=== PATIENT | female | born 1975 | race Two or more races ===

== ENCOUNTER → 2017-02-12 | Day surgery (SDC) | payer MEDICAID ==
[~2017-02-12] VITALS: Ht 149.9 cm; Wt 93.0 kg
[~2017-02-12] MED LIST: *HYDROmorphone PF 1 MG VIAL PERIprocedural Use ONLY ONE; ACETAMINOPHEN/HYDROcodone 325 MG/5 MG TAB PO PRN; CHLORHEXIDINE GLUCONATE 2 % 1 PACK (2 CLOTHS) TOPICAL PRN; CIPROFLOXACIN 400 MG PREMIX 200 ML ONE; CIPROFLOXACIN/DEXT 400 MG/200 ML IV SCH; DO NOT ADM ANY ANTICOAGULANT DRUGS PRN; FAMOTIDINE 20 MG/2 ML VIAL ONE; GABA100C4 PO; INSULIN HUMAN REGULAR 1,000 UNITS/10 ML VIAL SQ PRN; LACTATED RINGER'S 1000 ML INJ 1,000 ML IV ONE; LACTATED RINGER'S 1000 ML IV PRN; METOPROLOL TARTRATE 25 MG TAB PO PRN; MIDAZOLAM HCL 2 MG/2 ML VIAL ONE; MORPHINE SULFATE 4 MG/ML INJ IV PRN; ONDANSETRON HCL 4 MG/2 ML VIAL IV PUSH PRN; PHENYLEPH/NS 1000 MCG/10 ML SYR IV ONE; POVIDONE IODINE 5% (ANTISEPSIS KIT) 4 APPLICATIONS EACH NARE PRN; PROPOFOL 200 MG/20 ML AMP IV ONE; SERO200T PO; SODIUM CHLORID 0.9% 500 ML IV PRN; [UNRECOGNIZED DRUG - CODE] PO
[2017-02-12 07:47] VITALS: BP 124/79; PULSE 64; RESP 16; TEMP 97.8; O2SAT 100
[2017-02-12 08:02] LABS: AUTOMATED NEUTROPHIL # 2.3 TH/MM3 (1.8-7.7); BASOPHIL % 0.6 % (0.0-2.0); EOSINOPHIL # 0.2 TH/MM3 (0-0.4); EOSINOPHIL % 3.6 % (0.0-4.0); HEMATOCRIT 40.7 % (35.0-46.0); HEMO FLAGS DIFF FINAL; LYMPH % 44.1 % (9.0-44.0); LYMPHOCYTE # 2.4 TH/MM3 (1.0-4.8); MEAN CELL VOLUME 82.6 FL (80.0-100.0); MEAN CORPUSCULAR HEMOGLOBIN 26.6 PG (27.0-34.0); MEAN CORPUSCULAR HGB CONC 32.2 % (32.0-36.0); NEUT % 41.7 % (16.0-70.0); PLATELET COUNT 156 TH/MM3 (150-450); RED BLOOD COUNT 4.93 MIL/MM3 (4.00-5.30); RED CELL DISTRIBUTION WIDTH 12.9 % (11.6-17.2); WHITE BLOOD COUNT 5.4 TH/MM3 (4.0-11.0)
--- NOTE | 2017-02-12 08:25 | RADRPT ---
EXAM DATE/TIME: 02/12/2017 07:25 [place] COMPARISON: No previous studies available for comparison. INDICATIONS : Pre op lithotripsy right side lithotripsy. Evaluate for pneumonia, pneumothorax, and other communicab le diseases. MEDICAL HISTORY : Renal calculi. SURGICAL HISTORY : section. Hysterectomy. ENCOUNTER: Initial ACUITY: 1 day PAIN SCORE: 4/10 LOCATION: Right Abdomen. FINDINGS: Lung bases are clear. Surgical clips are seen in the gallbladder fossa. There is a faint calcification seen overlying the lower pole of the right kidney. I do not see a maciej cification along the expected course of the ureter however exam is severely limited due to patient's large body habitus. CONCLUSION: 1. Limited exam. Faint calcification is seen lower pole of right kidney. 2. I have no prior studies for comparison. Cali Mosley MD FACR on February 12, 2017 at 7:54 Board Certified Radiologist. This report was verified electronically.
--- NOTE | 2017-02-12 10:03 | PD.OP ---
Operative Report Date of Surgery: Feb 12, 2017 Preoperative Diagnosis: Right renal calculi Postoperative Diagnosis: Same Procedure: Right extracorporeal shockwave lithotripsy Anesthesia: TIVA Surgeon: Mika Marin [employer] Administrator(s): None Resident Surgeon: None Operation and Findings: 41-year-old female presented to the office with findings on a CT scan from [facility] with an 8 mm mid pole right renal calculus. Patient elected to undergo right extraportal shockwave lithotripsy. Risk and benefits were discussed preoperatively and she is willing to proceed. Patient was brought to the operating room identified by myself as Agustina Landaritu. She was placed on the operating room table in the supine position, received preprocedure antibiotics, and TIVA anesthesia was administered. The stone was localized under ultrasound guidance imaging and ESWL therapy commenced. Patient received a total of 2500 shocks in good fragmentation of the stone was visualized on imaging. She tolerated the procedure well and was transferred to recovery room in stable condition. She will follow-up in 2 weeks in the office and obtain a KUB x-ray prior. Mika Marin DO Feb 12, 2017 10:03
[2017-02-12 11:35] VITALS: BP 117/71; PULSE 46; RESP 18; TEMP 98.1; O2SAT 100
== END | disposition home or self-care (01) ==
LOC: HSDC 06:44
PROVIDERS: ATTEND Urology
DX: N20.0 Calculus of kidney (principal); M79.7 Fibromyalgia; N39.3 Stress incontinence (female) (male); N94.10 Unspecified dyspareunia; R11.0 Nausea; K59.00 Constipation, unspecified; M19.90 Unspecified osteoarthritis, unspecified site; Z01.818 Encounter for other preprocedural examination
CPT/HCPCS: 00872; 50590; 74000; 85025; J0744; J1170; J2250; J2270; J2370; J2405; J3010; J7120